=== PATIENT | female | born 1960 | race Caucasian/White ===

== ENCOUNTER → 2018-11-28 | Outpatient (CLI) | payer OTHER ==
--- NOTE | 2018-11-28 16:20 | PCVCIMAG ---
APPROVED REPORT Study performed: 11/28/2018 15:35:18 Exam: Stress Echocardiogram Indication: Hyperlipidemia, Hypertension, Pre op surgery clearance Stress Nurse: Loan Epps RN Status: routine Ht: 5 ft 5 in HR: 81 bpm BP: 140/80 mmHg Rhythm: NSR Medical History Medical History: Family history of CAD, Procedure The patient underwent an Exercise Stress Test using the Jian Protocol. Blood pressure, heart rate, and EKG were monitored. An Echocardiogram was performed by cartography/mapping technician in four stages in quad fashion. At peak stress, four selected images were obtained and placed side by side with resting images for comparison. Stress Test Details Stress Test: Exercise stress testing was performed using a Jian protocol. HR Resting HR: 81 bpmMax Heart Rate (APMHR): 165 bpm Max HR Achieved: 157 bpmTarget HR (85% APMHR): 140 bpm % of APMHR: 95 Recovery HR: 101 bpm HR response to stress: Normal HR response to stress BP Resting BP: 140/80 mmHg Max BP: 248/60 mmHg Recovery BP: 158/60 mmHg BP response to stress: Hypertensive response ECG Resting ECG: Sinus Rhythm Stress ECG: Sinus Rhythm ST Change: Eqivocal Recovery ECG: Sinus Rhythm Clinical Reason for Termination: Maximal effort Exercise duration: 7 min 01 sec Highest Stage Achieved: Stage 3: 3.4 mph at 14% grade. Exercise capacity: 10.10 METs Overall Exercise Capacity for Age: Normal Pre-Stress Echo The resting Echocardiogram showed normal left ventricular contractility with an estimated Ejection Fraction of about 55-60%. Normal wall motion in all segments on baseline images. Post-Stress Echo The stress Echocardiogram showed normal left ventricular contractility with an estimated Ejection Fraction of about 60-65%. Normal augmentation of wall motion in all segments on post stress images. Clinical No clinical evidence for ischemia. Conclusion Clinical Response: Non-ischemic Exercise Capacity: Below Average Stress ECG Response: Equivocal Stress Echo Images: Non-ischemic The left ventricle is normal in size and wall thickness in both the rest and stress images. Other Information Study Quality: Technically Difficult <Conclusion> The left ventricle is normal in size and wall thickness in both the rest and stress images.
== END | disposition home or self-care (01) ==
LOC: PCVCIMAG 15:14
PROVIDERS: ATTEND Internal Medicine Cardiovascular Disease
DX: Z01.818 Encounter for other preprocedural examination (principal); E78.5 Hyperlipidemia, unspecified; I10 Essential (primary) hypertension
CPT/HCPCS: 93325; 93351